=== PATIENT | male | born 1990 | race Two or more races ===

== ENCOUNTER 2021-09-06 09:27 | Emergency (ER) | payer SELFPAY ==
[~2021-09-06] VITALS: Ht 180.3 cm; Wt 83.9 kg
--- NOTE | 2021-09-06 09:30 | NUR ---
BIBS FOR C/O FACE/LIP VS EDGE OF BED AFTER A TRIP/FALL,NO LOC. RATES PAIN 9/10. THE PATIENT IS ALERT AND ORIENTED X4. IN ROOM AIR AND DENIES SOB. RESPIRATION REGULAR AND UNLABORED. WILL CONTINUE TO MONITOR THE PATIENT.
[2021-09-06] MEDS ORDERED: LIDOCAINE 1% INJ 50 ML MDV IJ ONE (10:00)
[2021-09-06] MEDS ORDERED: BACI/NEOM/POLY B OINT PKT 1 UDPKT PACKET TP ONE (10:00)
[2021-09-06] MEDS ORDERED: TDAP [DIPH/PERTUSSIS/TET] 0.5 ML VIAL IM ONE ×2 (10:00→10:06)
[2021-09-06] MEDS ORDERED: LIDOCAINE /MPF 1% VIAL 5 ML VIAL ONE (10:02)
[2021-09-06] MEDS ORDERED: IBUP-1955 PO (11:50)
[2021-09-06] MEDS ORDERED: AMOX-430 PO (11:50)
--- NOTE | 2021-09-06 12:03 | NUR ---
Patient discharged to home in stable condition. Written and verbal after care instructions given. Patient verbalizes understanding of instruction.
[2021-09-06 12:06] VITALS: BP 128/67
== END 2021-09-06 12:07 | disposition home or self-care (01) ==
LOC: ER 09:36
DX: S01.511A Laceration without foreign body of lip, initial encounter (principal); Z60.2 Problems related to living alone; W01.0XXA Fall on same level from slipping, tripping and stumbling without subsequent striking against object, initial encounter; Y93.89 Activity, other specified; Y92.89 Other specified places as the place of occurrence of the external cause; Y99.8 Other external cause status
CPT/HCPCS: 40650; 90471; 90715; 99284; A6403; J3490

== ENCOUNTER 2021-09-12 13:05 | Emergency (ER) | payer SELFPAY ==
[~2021-09-12] VITALS: Ht 177.8 cm; Wt 83.9 kg
[~2021-09-12 13:05] MED LIST: AMOX-430 PO; IBUP-1955 PO
[2021-09-12 13:08] VITALS: BP 132/88
--- NOTE | 2021-09-12 13:19 | NUR ---
Patient discharged to home in stable condition. Written and verbal after care instructions given. Patient verbalizes understanding of instruction.
== END 2021-09-12 13:19 | disposition home or self-care (01) ==
LOC: ER 13:06
DX: S01.511D Laceration without foreign body of lip, subsequent encounter (principal); Z60.2 Problems related to living alone; X58.XXXD Exposure to other specified factors, subsequent encounter

== ENCOUNTER 2021-09-25 17:06 | Emergency (ER) | payer SELFPAY ==
[~2021-09-25] VITALS: Ht 180.3 cm; Wt 84.4 kg
[2021-09-25 17:31] VITALS: BP 144/95
--- NOTE | 2021-09-25 17:38 | NUR ---
AT BEDSIDE FOR SUTURE REMOVAL.
--- NOTE | 2021-09-25 17:50 | NUR ---
Patient discharged to home in stable condition. Written and verbal after care instructions given. Patient verbalizes understanding of instruction.
== END 2021-09-25 17:51 | disposition home or self-care (01) ==
LOC: ER 17:08
DX: S01.511D Laceration without foreign body of lip, subsequent encounter (principal); Z48.02 Encounter for removal of sutures; Z60.2 Problems related to living alone; Z79.899 Other long term (current) drug therapy; X58.XXXD Exposure to other specified factors, subsequent encounter